=== PATIENT | female | born 1970 | race Caucasian/White ===

== ENCOUNTER → 2016-12-16 | Outpatient (CLI) | payer OTHER ==
[~2016-12-16] MED LIST: ANTIFUNGAL15 G1 TP; ANTIVERT25 MG PO; AVONEX PEN30 MCG/0.1 IM; BACTROBAN OINTM22 GM TP; CITALOPRAM HBR20 MG PO; ERGOCALCIF50000 UNIT PO; KEFLEX500 MG PO; MECLIZINE HCL25 MG PO; NAPROSYN500 MG PO; SIMVASTATIN20 MG PO
== END | disposition home or self-care (01) ==
LOC: RES 09:58
DX: J45.909 Unspecified asthma, uncomplicated (principal)
CPT/HCPCS: 94060; 94726; 94729